=== PATIENT | male | born 1975 | race Caucasian/White ===

== ENCOUNTER 2023-08-14 07:35 | Emergency (ER) | payer OTHER, SELFPAY ==
[2023-08-14] VITALS (7 sets, daily range): BP systolic 76–119; BP diastolic 46–89
--- NOTE | 2023-08-14 08:55 | ED.GENMED ---
History of Present Illness
General
Chief Complaint: Allergic Reaction
Source: patient
Exam Limitations: none
Time Seen by Provider: 08/14/23 08:37
Travel History
Have you had any contact with someone who has COVID-19?: No
Do you have any symptoms of coronavirus? Fever > 100 degrees, chills, cough, shortness of breath, sore throat, loss of taste or smell, muscle aches, or headache?: Yes
Symptoms:: chills, sweats, fever
History of Present Illness
History of Present Illness:
47-year-old male presents with possible allergic reaction worsening since yesterday. Started with a rash on his arm left side and developed diffuse hives. This morning he woke up with lip swelling nausea and vomiting. He denies any trouble
breathing. Unknown etiology of rash. 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 No other new exposures that he is aware of. He thought he may have been bit by an insect on the left forearm. He took Benadryl last
evening but no medication this morning. He vomited on the way back to his room.
Past History
Past History
ED Past Medical History: None
ED Past Surgical History: None
Social History
Tobacco: Non-smoker
Alcohol: None
Drug: None
Personal:
Living: with family
Employment: Employed
Family History
Family History: Other (Noncontributory)
Phy Exam
Physical Exam
Physical Exam:
General: Well-appearing nontoxic male no acute respiratory
HEENT: Normocephalic lip swelling noted posterior pharynx patent no stridor no trismus or drooling
Heart: Regular rate and rhythm no murmurs
Lungs: Clear to auscultation bilaterally no wheezing
Skin: Urticarial rash diffusely of the trunk and extremities
Extremities: No cyanosis
Course
Orders/Labs/Results
Orders:
Orders
08/14/23 08:47
0.9% Sodium Chloride 1000 ml [Nss] 1,000 ml IV BOLUS
Dexamethasone Sod Phosphate [Decadron] 10 mg IV NOW STA
Diphenhydramine [Benadryl] 25 mg IV NOW STA
Famotidine [Pepcid] 20 mg IV NOW STA
Vital Signs
Initial and Last Documented VS:
Initial Vital Signs
Temp Pulse Resp BP Pulse Ox
98.2 F 88 16 76/46 100
08/14/23 07:38 08/14/23 07:38 08/14/23 07:38 08/14/23 07:38 08/14/23 07:38
Last Documented Vital Signs
Temp Pulse Resp BP Pulse Ox
98.2 F 80 18 118/83 95
08/14/23 07:38 08/14/23 10:30 08/14/23 10:30 08/14/23 10:00 08/14/23 10:30
MDM/Problems Addressed
Differential Diagnosis Includes:
Allergic reaction. Etiology unclear. No current respiratory distress. Repeat blood pressure in the room improved from triage blood pressure. Will hydrate give Decadron Benadryl and Pepcid. If no better upon reevaluation consider epinephrine
however no current respiratory distress
*Critical Care Note
Total Time (30-74mins, 75-104mins- exclusive of procedures): Not Applicable
Update Note
Update Note:
Patient reevaluated multiple times. Blood pressure stable rash is improved no respiratory distress. Stable for discharge. He may continue Benadryl before hours will prescribe prednisone for 5 days as well.
ED Attending Note
-
Portions of this chart may have been created with voice recognition software.� Occasional wrong word or��sound alike� substitutions may have occurred due to the inherent limitations of voice recognition software.
Discharge Plan
Departure
Patient Disposition: Home (Routine Discharge)
Date of Disposition: 08/14/23
Time of Disposition: 10:45
Patient with high blood pressure during this ER visit?: No
Discharge Problem:
Allergic reaction
Instructions: Hives (DC)
Prescriptions:
New
prednisone 20 mg tablet
40 mg PO DAILY 5 Days Qty: 10 0RF
No Action
cephalexin 500 MG capsule
500 mg PO TID Qty: 15 0RF
Referrals:
Ra Du MD [Family Provider] -
Activity Restrictions/Additional Instructions:
Continue with Benadryl every 4 hours if needed. Take prednisone as directed. Return for worsening symptoms otherwise.
Interventions
Interventions:
*Neglect/Abuse Screening Last Done: 08/14/23 09:13
ED- Fall Risk Assessment Last Done: 08/14/23 09:13
ED- Cardiac Assessment Last Done: 08/14/23 09:13
ED- Pulmonary Assessment Last Done: 08/14/23 09:13
[2023-08-14] MEDS: NSS 1000 IV (09:03)
[2023-08-14] MEDS: PEPCID 20 MG IV (09:04)
[2023-08-14] MEDS: BENADRYL 25 MG IV (09:04)
[2023-08-14] MEDS: DECADRON 10 MG IV (09:04)
== END 2023-08-14 11:30 | disposition home or self-care (01) ==
LOC: EMR 07:35
PROVIDERS: EMERGENCY PHYSICIAN Emergency Medicine; FAMILY PHYSICIAN Family Medicine
DX: T78.40XA Allergy, unspecified, initial encounter (principal); X58.XXXA Exposure to other specified factors, initial encounter
CPT/HCPCS: 99282; 96374; 96375; 96361

== ENCOUNTER 2024-04-27 00:20 | Emergency (ER) | payer OTHER, SELFPAY ==
[2024-04-27 00:23] VITALS: BP 173/110
--- NOTE | 2024-04-27 01:20 | ED.SKININJ ---
HPI-Injury
General
Chief Complaint: Skin Surface Trauma
Source: patient
Exam Limitations: none
Time Seen by Provider: 04/27/24 01:08
History of Present Illness-Injury
Is this injury a work related problem?: No
Is pt an associate of [facility]?: No
Initial Injury comments:
This is a 48 year old male that comes in with c/o left index finger injury. States that on Tuesday he was working with a nail gun and finishing nails. States that he shot the nail into the wood and it must have hit something and when the nail came
out it was bent and hit his left index finger. States that he was fine after this. States that this happened at 10 am in the morning and he went back to work. States that he was good until 4pm today when his finger started to hurt and swell. States
that he has difficulty bending the finger. Denies any fever, chills, chest pain, SOB, abd pain, nausea, vomiting, diarrhea, headache, dizziness,
Past History
Past History
ED Past Medical History: HTN, Psychiatric (anxiety) and Other (Back pain, DJD)
ED Past Surgical History: None
Social History
Tobacco: Smoker
Alcohol: Daily (Vodka 1-2 glasses)
Drug: None
Personal:
Living: with family
Employment: Employed
Family History
Family History: Other (Noncontributory)
Review of Systems
Review of Systems
All Other Systems: ROS reviewed and negative except as documented in HPI and ROS
Constitutional: Reports no symptoms; Denies fever or chills
EENT: Reports no symptoms
Respiratory: Reports no symptoms; Denies cough or trouble breathing
Cardiac: Reports no symptoms; Denies chest pain
ABD/GI: Reports no symptoms; Denies abdominal pain, nausea, vomiting or diarrhea
: Reports no symptoms; Denies dysuria, frequency or urgency
Musculoskeletal: Reports no symptoms
Skin: Reports no symptoms
Neurological: Reports no symptoms; Denies dizzy or headache
Psychiatric: Reports no symptoms
Phy Exam
General Physical Exam
General Presentation: well appearing and no apparent distress
General age: appears stated age
General Skin: warm and dry
General Habitus: normal
General Mental: alert
General Hydration: appears well hydrated
Eye Exam
Eye Exam: EOMI
Musculoskeletal Exam
Musculoskeletal Exam: other (Limited movement of the left index finger due to swelling. )
Skin Exam
Skin Exam: normal color, warm/dry, no rash, no petechia and other (Small healing wound on the left index finger with scab)
Psychiatric Exam
Psychiatric Exam: normal mood/affect
Course
Orders/Labs/Results
Orders:
Orders
04/27/24 00:29
Finger(s)/Thumb 2 View Lt [CR Finger(s)/thumb Min 2 Vw Lt] Urgent
Comment:
Reason For Exam: shot with nail gun L index finger, area swollen,
04/27/24 01:18
Cephalexin Monohydrate [Keflex] 500 mg PO NOW STA
Tetanus/Diphth/Acelpertussis [Adacel] 0.5 ml IM .ONCE ONE
04/27/24 01:20
Acetaminophen [Tylenol] 1,000 mg PO NOW STA
Vital Signs
Initial and Last Documented VS:
Initial Vital Signs
Temp Pulse Resp BP Pulse Ox
98.3 F 88 16 173/110 98
04/27/24 00:23 04/27/24 00:23 04/27/24 00:23 04/27/24 00:23 04/27/24 00:23
Last Documented Vital Signs
Temp Pulse Resp BP Pulse Ox
98.3 F 88 16 173/110 98
04/27/24 00:23 04/27/24 00:23 04/27/24 00:23 04/27/24 00:23 04/27/24 00:23
MDM/Problems Addressed
Differential Diagnosis Includes:
Left index fracture, Infection left index
MDM/Problems Addressed:
This is a 48 year old male that comes in with c/o left index finger swelling and pain. States that he shot a finishing nail through a piece of wood on Tuesday and when it went thought it must have hit something as it bent when it came out and
went into his finger. States that he was fine and went back to work. at 4pm it started to hurt and swell.
Will get X-ray and start patient on antibiotics. Patient to follow up with the family doctor. Explained to patient that there are no fractures. Will discharge home.
Chronic conditions affecting care:
NA
Acute Exacerbation and/or Progression of Chronic Illness:
NA
*Radiology
Radiology exam reviewed: preliminary read by ED provider (Left index finger- Negative for fracture or dislocation)
*Pulse Oximetry
Patient hypoxic: no
*EKG
Interpreted by ED Provider?: NA
Rate: EKG- N/A
*Senior Receptionist Interpretation
Rate: Senior Receptionist- N/A
*Critical Care Note
Total Time (30-74mins, 75-104mins- exclusive of procedures): Not Applicable
ED Attending Note
-
Portions of this chart may have been created with voice recognition software.� Occasional wrong word or��sound alike� substitutions may have occurred due to the inherent limitations of voice recognition software.
Discharge Plan
Departure
Patient Disposition: Home (Routine Discharge)
Date of Disposition: 04/27/24
Time of Disposition: 01:29
Patient with high blood pressure during this ER visit?: Yes
Condition: Good
Covid-19: Not Applicable
Discharge Problem:
Swelling of left index finger
Instructions: Wound Care (DC), BLOOD PRESSURE
Prescriptions:
New
cephalexin 500 mg capsule
500 mg PO Q8H 7 Days Qty: 21 0RF
Referrals:
UNKNOWN - PT DOES,NOT KNOW [Family Provider] -
Activity Restrictions/Additional Instructions:
As discussed, your x-ray is negative for any fractures. You have been given a Adacel injection here and start on antibiotics. Your Prescription has been sent to your Pharmacy. Please take this as directed until finished. Please keep your hand
elevated to help keep the swelling down. Follow up with the family doctor for recheck. IF YOU HAVE INCREASED SWELLING, REDNESS OR ANY OTHER CONCERNS PLEASE RETURN TO THE EMERGENCY ROOM.
Interventions
Interventions:
*Risk Screen - Suicide Last Done: 04/27/24 00:23
*General Assessment Last Done: 04/27/24 00:23
*Neglect/Abuse Screening Last Done: 04/27/24 00:23
*ED COVID-19 Vaccine History Last Done: 04/27/24 01:25
Discharge Date and Time
Print Language: PORTUGUESE
[2024-04-27] MEDS: TYLENOL 1000 MG PO (01:25)
[2024-04-27] MEDS: KEFLEX 500 MG PO (01:26)
[2024-04-27] MEDS: ADACEL 0.5 ML IM (01:27)
[2024-04-27 01:31] VITALS: BP 156/102
== END 2024-04-27 01:38 | disposition home or self-care (01) ==
LOC: EMR 00:20
PROVIDERS: EMERGENCY PHYSICIAN Emergency Medicine
DX: S60.941A Unspecified superficial injury of left index finger, initial encounter (principal); W45.0XXA Nail entering through skin, initial encounter; Z23 Encounter for immunization; I10 Essential (primary) hypertension; F17.200 Nicotine dependence, unspecified, uncomplicated
CPT/HCPCS: 90471; 99283; 73140; 90715